=== PATIENT | male | born 1940 | race African-American/Black ===

== ENCOUNTER 2017-03-16 04:31 | Emergency (ER) | payer MEDICARE, OTHER ==
[~2017-03-16] VITALS: Ht 175.3 cm; Wt 72.7 kg
[2017-03-16] MEDS ORDERED: SODIUM BICARBONATE [ADULT] 8.4% 50 MEQ/50 ML SYRINGE IVP ONE (04:34)
[2017-03-16] MEDS ORDERED: CALCIUM CHLORIDE 100 MG/ML 10 ML SYRINGE IVP ONE (04:34)
[2017-03-16] MEDS ORDERED: EPINEPHrine 1:10,000 [1 MG/10 ML] SYRINGE IVP ONE (04:34)
[2017-03-16 04:40] VITALS: BP 0/0
[2017-03-16] MEDS ORDERED: ALLO100T PO (04:52)
[2017-03-16] MEDS ORDERED: SILD100T PO (04:52)
[2017-03-16] MEDS ORDERED: CHOL200016 PO (04:52)
[2017-03-16] MEDS ORDERED: MELO-108 PO (04:52)
[2017-03-16] MEDS ORDERED: SILD100T71 PO (04:52)
[2017-03-16] MEDS ORDERED: FERR325T22 PO (04:52)
[2017-03-16] MEDS ORDERED: METF10002 PO (04:52)
[2017-03-16] MEDS ORDERED: COLC0.6T67 PO (04:52)
[2017-03-16] MEDS ORDERED: ATOR-2 PO (04:52)
[2017-03-16] MEDS ORDERED: AMLO5TAB66 PO (04:52)
[2017-03-16] MEDS ORDERED: VALS1TAB79 PO (04:52)
[2017-03-16] MEDS ORDERED: LINA5TAB PO (04:52)
[2017-03-16] MEDS ORDERED: LORA10TA7 PO (04:52)
== END 2017-03-16 06:27 | disposition expired ==
LOC: EMS 04:33 → EDBD 04:33 → EMS 06:27
DX: I46.9 Cardiac arrest, cause unspecified (principal)
CPT/HCPCS: 31500; 82962; 92950; 99291; J0171; J3490 ×2